=== PATIENT | male | born 1960 | race Caucasian/White ===

== ENCOUNTER 2017-07-16 08:53 | Emergency (ER) | payer BC, MEDICAID ==
[~2017-07-16] VITALS: Ht 180.3 cm; Wt 79.4 kg
[2017-07-16] MEDS ORDERED: KETOROLAC TROMETH 60MG/2ML VIAL IM ONE (09:15)
[2017-07-16 10:15] VITALS: BP 137/88
== END 2017-07-16 10:23 | disposition home or self-care (01) ==
LOC: ER 08:53
DX: M54.16 Radiculopathy, lumbar region (principal); I10 Essential (primary) hypertension; M54.5 Low back pain
CPT/HCPCS: 74176; 93005; 96372; 99284; J1885

== ENCOUNTER 2024-03-01 15:49 | Emergency (ER) | payer BC ==
[~2024-03-01] VITALS: Ht 180.3 cm; Wt 91.0 kg
[2024-03-01 17:14] LABS: Urine Blood 3+ /uL (Negative); Urine Clarity Ex.Turbid (Clear); Urine Protein, UAD 1+ (Negative); Urine Urobilinogen 2 mg/dL (Negative); Urine WBC 228 /hpf (0 - 3)
[2024-03-01 17:15] LABS: Urine Bacteria 1+ /hpf (None Seen); Urine Color RED (Yellow)
[2024-03-01] MEDS ORDERED: CIPR-173 PO (19:20)
[2024-03-01 20:54] VITALS: BP 129/78; PULSE 59; RESP 16; TEMP 98; O2SAT 98
== END 2024-03-01 20:57 | disposition left against medical advice (07) ==
LOC: ER 15:49
DX: N40.0 Benign prostatic hyperplasia without lower urinary tract symptoms (principal); R31.9 Hematuria, unspecified; I10 Essential (primary) hypertension; Z79.2 Long term (current) use of antibiotics; Z88.5 Allergy status to narcotic agent
CPT/HCPCS: 81001